=== PATIENT | female | born 1970 | race Two or more races ===

== ENCOUNTER → 2016-11-16 | Outpatient (CLI) | payer BC ==
--- NOTE | ~2016-11-16 | MY6 ---
[facility] A Service of [facility] RADIOLOGY TEXT RESULTS PATIENT: FRANCISCO VELEZ LOCATION: [facility] : 70 UNIT #: [id number] AGE: [address]: NORBERT ESQUIVEL APRN SEX: F ORDER DR: [id number] [facility]. [place], [place] [address] [id number] MR#: [id number] Acc #: [id number] NAME: FRANCISCO VELEZ : 1970 SEX: F STUDY DATE/TIME: 11/16/2016 10:49 UNIT: [facility] ROOM: STUDY DESCRIPTION: MY Mammogram Dx Dig [facility] Attending Physician: Norbert Esquivel Referring Physician: Luis Angel Sauceda M.D. Ordering Physician: Lisa Esquivel M.D. Primary Care Physician: Luis Angel Sauceda M.D. MEDICAL IMAGING REPORT This report is preliminary unless electronic signature is present EXAM Bilateral diagnostic digital mammogram with CAD 11/16/2016. HISTORY 46-year-old female with no personal history of breast cancer. Reports increased swelling after menstrual cycle in the superior aspects of both breasts. FINDINGS CC, MLO, ML views of both breasts were obtained. Background breast parenchyma consists of heterogenously dense tissue. There is no suspicious mass, microcalcification, architectural distortion. IMPRESSION Negative mammogram. Patients over the age of 40 are entered into a reminder system with target due date for the next mammogram. A result letter will also be sent to the patient. BIRADS: 1 Negative. Recommendations: Annual screening mammogram. Dictated by... Chirag Xie M.D. THIS IS AN ELECTRONICALLY VERIFIED REPORT Chirag Xie M.D. at 11/16/2016 5:15 PM MARIA DEL CARMEN/felisha TD: 11/16/2016 14:06 JOB #: [id number] [facility] A Service [facility] RADIOLOGY TEXT RESULTS PATIENT: FRANCISCO VELEZ LOCATION: [facility] : 70 UNIT #: [id number] AGE: [address]: NORBERT ESQUIVEL APRN SEX: F ORDER DR: MEDICAL IMAGING REPORT Page 1 of 1 COPY
== END | disposition home or self-care (01) ==
LOC: CWCC 10:00
DX: N63 Unspecified lump in breast (principal)
CPT/HCPCS: G0204